=== PATIENT | female | born 2005 | race Caucasian/White ===

== ENCOUNTER 2023-01-25 23:19 | Emergency (ER) | payer OTHER ==
[~2023-01-25 23:19] MED LIST: LIDOCAINE PATCH REMOVAL MC SCH
[2023-01-25 23:38] VITALS: BP 103/84; PULSE 95; RESP 20; TEMP 98; BMI 25.7
[2023-01-25] MEDS ORDERED: ACETAMINOPHEN 325 MG TABLET (FP) PO ONE (23:51)
[2023-01-25] MEDS ORDERED: LIDOCAINE 5% TOPICAL PATCH TP ONE (23:51)
[2023-01-26] MEDS ORDERED: ACETAMINOPHEN 325 MG TABLET (FP) ONE (00:46)
[2023-01-26] MEDS ORDERED: LIDOCAINE 5% TOPICAL PATCH ONE (00:46)
[2023-01-26 01:19] LABS: PH,URINE 5.5 (5.0-8.0); URINE APPEARANCE CLOUDY; URINE BILIRUBIN NEGATIVE (NEGATIVE); URINE COLOR YELLOW; URINE GLUCOSE (UA) NEGATIVE (NEGATIVE); URINE KETONE TRACE (NEGATIVE); URINE LEUK ESTERASE NEGATIVE (NEGATIVE); URINE NITRITE NEGATIVE (NEGATIVE); URINE PROTEIN TRACE (NEGATIVE)
[2023-01-26 01:22] LABS: HCG,QUALITATIVE URINE Negative
[2023-01-26] MEDS ORDERED: KETOROLAC TROMETHAMINE 15 MG/ML VIAL IVPUSH ONE (01:41)
[2023-01-26] MEDS ORDERED: KETOROLAC TROMETHAMINE 15 MG/ML VIAL ONE (01:54)
[2023-01-26] MEDS ORDERED: KETOROLAC TROMETHAMINE 15 MG/ML VIAL IM ONE (01:58)
== END 2023-01-26 02:03 | disposition home or self-care (01) ==
LOC: JER 23:19
PROC: 3E033NZ Introduction of Analgesics, Hypnotics, Sedatives into Peripheral Vein, Percutaneous Approach (ICD-10-PCS; principal; 2023-01-26)
PROC: 3E0233Z Introduction of Anti-inflammatory into Muscle, Percutaneous Approach (ICD-10-PCS; 2023-01-26)
DX: M54.50 Low back pain, unspecified (principal)
CPT/HCPCS: 81003; 84703; 87086; 99284-25